=== PATIENT | female | born 1965 | race Caucasian/White ===

== ENCOUNTER → 2018-01-22 | Outpatient (CLI) | payer BC | LOC: FIMAGING 13:14 | PROVIDERS: ATTEND Orthopaedic Surgery | DX: M16.11 Unilateral primary osteoarthritis, right hip (principal); R19.00 Intra-abdominal and pelvic swelling, mass and lump, unspecified site ==

== ENCOUNTER → 2018-01-27 | Outpatient (CLI) | payer BC | LOC: BRMIMAGING 08:39 | PROVIDERS: ATTEND Physician Assistant | DX: R19.03 Right lower quadrant abdominal swelling, mass and lump (principal); N83.201 Unspecified ovarian cyst, right side; D25.9 Leiomyoma of uterus, unspecified | CPT/HCPCS: 76856-PO ==

== ENCOUNTER → 2018-01-30 | Outpatient (CLI) | payer BC ==
[~2018-01-30] MED LIST: GADOBUTROL 10 ML VIAL IVP ONE
== END ==
LOC: FIMAGING 12:39
PROVIDERS: ATTEND Nurse Practitioner Women's Health
DX: R19.00 Intra-abdominal and pelvic swelling, mass and lump, unspecified site (principal); D25.2 Subserosal leiomyoma of uterus
CPT/HCPCS: A9585

== ENCOUNTER 2018-02-06 07:59 | Inpatient (IN) | payer BC ==
--- NOTE | 2018-02-06 05:46 | PDHPUP ---
History & Physical Update H&P update statement: This history and physical update is based on an assessment of the patient which was completed after admission or registration (within 24 hours), but prior to the surgery/procedure. H&P update: H&P reviewed & patient examined, no change in patient's condition since H&P completed
--- NOTE | 2018-02-06 07:11 | PDGENHP ---
History and Physical History and Physical: Print Patient Name MAIRA COLBY (52yo, F) ID# [id number] Appt. Date/Time 01/26/2018 12: 00PM 1965 Service Dept. MAIN OFFICE Provider LIDYA ARTHUR PA-C Insurance Med Primary: [employer] Insurance # : [id number] Policy/Group # : [id number] Prescription: CMX - Member is eligible. details Chief Complaint Right CBB_discuss right hip surgery patient is here today to discuss right hip surgery. patient states right hip was popping 1-2 weeks ago while walking. No pain with it. Patient's Care Team Primary Care Provider: YADIRA ALANIZ DO: [address], [place] [address], , Patient's Pharmacies [facility] #[id number] (ERX): [phone] [facility], [facility] [id number], , Vitals Ht: 5 ft 10 in 01/26/2018 12:18 pm Wt: 147 lbs 01/26/2018 12:20 pm BMI: 21.1 01/26/2018 12:20 pm BP: 108/71 sitting R arm 01/26/2018 12:23 pm Pulse: 69 bpm 01/26/2018 12:23 pm Allergies Reviewed Allergies BENZOCAINE CELERY CODEINE LEVAQUIN PERCOCET SULFA (SULFONAMIDE ANTIBIOTICS) THIMEROSAL Medications Reviewed Medications cyclobenzaprine 10 mg tablet Take 1 tablet(s) every 8 hours as needed for muscle spasms 01/26/18 prescribed Lidya Arthur PA-C Dilaudid 2 mg tablet take 1 tab every 3-4 hours as needed for pain 01/26/18 prescribed Lidya Arthur PA-C EPINEPHrine 0.3 mg/0.3 mL injection, auto-injector PRN, stop 05/29/2016 09/02/16 filled [facility] escitalopram 10 mg tablet 01/16/18 filled [facility] tamoxifen 20 mg tablet 01/01/18 filled [facility] Vaccines None recorded. 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 Pain in left foot - Onset: 05/29/2016 Family History Reviewed Family History Mother - Arthritis - Heart disease - Malignant neoplastic disease Father - Heart disease Maternal Grandmother - Malignant neoplastic disease Maternal Aunt - Malignant neoplastic disease Maternal Uncle - Malignant neoplastic disease Social History Reviewed Social History Smoking Status: Never smoker Non-smoker Occupation: Artists and related workers Employer: self Occupational health risks: repetitive strain injury Chewing tobacco: none Alcohol intake: None Alcohol-years of use: 20 Caffeine intake: None Exercise level: Moderate Sporting activities: walking, stationary bike Hand Dominance: Bilateral Education: 4 Year College Live alone or with others?: with others Surgical History Reviewed Surgical History Shoulder arthroscopy - 11/06/2015 Oncology Surgery - 03/24/2015 Orthopaedic Surgery - 03/24/2015 Oncology Surgery - 03/24/2014 Orthopaedic Surgery - 03/24/2014 Atrial Septal Defect Repair - 03/24/2013 Orthopaedic Surgery - 03/24/2010 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 Past Pregnancies None recorded. Past Medical History Reviewed Past Medical History Anxiety Disorder: Y Arthritis: Y Cancer: Y Urinary Tract Infection: Y Are you still having monthly menstral periods: Y Metals or Jewelry Sensitivity: Y Screening None recorded. [facility] MASTER hip HPI Reported by patient. Location of symptoms: Right hip Symptoms: Pain Severity: moderate Duration: 1+ years Onset: chronic Exacerbated by: Walking; Physical activity Alleviated by: activity modifications; NSAIDs Associated Symptoms: no numbness Previous Surgery: none (on hip) Prior studies: radiographs Previous Injections: none Previous PT: did not help Work Related: no Notes: patient had many questions regarding surgery. All were addressed today. history of breast cancer ROS ROS as noted in the HPI Physical Exam Patient is a 52-year-old female. Constitutional: General Appearance: healthy-appearing, NAD, and normal body habitus. Psychiatric: Orientation: oriented to time, place, and person. Mood and Affect: normal affect and mood and active and alert. Gait and Station: Appearance: ambulating with no assistive devices and antalgic gait. Cardiovascular System: Arterial Pulses Right: dorsalis pedis pulse normal and posterior tibialis pulse normal. Edema Right: none. Varicosities Right: capillary refill test normal and no varicosities. Lymph Nodes: Inspection/Palpation Right: no popliteal LAD. Hip/Pelvis Appearance: Inspection: normal axial alignment, pelvis level, no leg length discrepancy, and Trendelenburg's sign negative. Hips: Bony Palpation Right: no tenderness of the SI joint or the greater trochanter. Soft Tissue Palpation Right: no tenderness of the hip flexor muscles , the hip adductor muscles, or the piriformis. Active Range of Motion Right: flexion (100 deg.), internal rotation (10 deg.), and external rotation (55 deg.) . Passive Range of Motion Right: pain elicited by motion. Strength Right: normal 5/5. Skin: Right Lower Extremity: normal. Neurologic: Sensation on the Right: L2 normal, L3 normal, and L4 normal. Heart Rate And Rhythm (normal) heart rate and rhythm. Lungs respirations unlabored. Assessment / Plan Right hip OA Previous hip xrays were reviewed today revealing severe DJD Discussed operative and non-operative interventions for diagnosis of hip arthritis with patient. Recommend Right CHRIST for treatment. Discussed risks and benefits of operative intervention including but not limited to bleeding, infection, need for further surgery, blood clots, blood clots going to the lungs and rare perioperative complications including stroke, heart attack and . We also discussed risk for dislocation, change in leg length, fracture and need for further surgery. Patient understands risks and wishes to proceed. Informed consent was obtained today Postoperative medications were written today including ASA for VTE prophylaxis postop Right CHRIST scheduled history of breast cancer. 2.9cm x2.5cm mass found on CT scan of right hip, recommend further visualization with ultrasound work up. Will send ultrasound order today. Recommend that patient discuss results with PCP. Patient understands and will do so at her next scheduled appt with PCP on of this week. patient has nausea with oxycodone. has tolerated dilaudid well in the past patient will keep us informed of what the ultrasound results are and what the recommendations of her PCP or oncologist/health care recruiter recommend. 1. Acute postoperative pain G89.18: Other acute postprocedural pain cyclobenzaprine 10 mg tablet - Take 1 tablet(s) every 8 hours as needed for muscle spasms Qty: 30 tablet(s) Refills: 1 [address]: [facility] # [id number] Dilaudid 2 mg tablet - take 1 tab every 3-4 hours as needed for pain Qty: 20 tablet(s) Refills: 0 Pharmacy: [facility] #[id number] 2. Prophylactic anticoagulation given Z76.89: Persons encountering health services in other specified circumstances 3. Localized, primary osteoarthritis M16.11: Unilateral primary osteoarthritis, right hip 4. Pelvic mass R19.00: Intra-abdominal and pelvic swelling, mass and lump, unspecified site US, PELVIS - Note to Imaging Facility: 2.9 cm x 2.5 cm mass visualized. questionable fibroud in uterus or left adnexa/ovarian mass on CT of right hip at [facility]. Radiologist recommends further visualization. PMH significant for breast cancer. Return to Office Eamon Arthur M.D. for Surgery 90 at Surgery on 02/06/2018 at 10:15 AM Lidya Arthur PA-C for Surgery 90 at Surgery on 02/06/2018 at 10:15 AM Lidya Arthur PA-C for Post Op Visit at MAIN OFFICE on 02/26/2018 at 10:15 AM Eamon Arthur M.D. for Post Op Visit at MAIN OFFICE on 03/19/2018 at 10 :30 AM Eamon Arthur M.D. for Post Op Visit at MAIN OFFICE on 04/30/2018 at 10 :30 AM Encounter Sign-Off Encounter signed-off by Lidya Arthur PA-C, 01/26/2018. Encounter performed and documented by Lidya Arthur PA-C Encounter reviewed & signed by Lidya Arthur PA-C on 01/26/2018 at 6:01pm There is not enough information to calculate an E&M code
[~2018-02-06 07:59] MED LIST changes: -GADOBUTROL 10 ML VIAL IVP ONE; +ROPIVACAINE 0.2% 80 MG, EPINEPHrine 0.2 MG, KETOROLAC TROMETHAMINE 30 MG in SYRINGE 0 ML IU ONE; +TRANEXAMIC ACID 3,000 MG in NS (SYRINGE) 50 ML IRR ONE; +TRANEXAMIC ACID 3,000 MG/50 ML BAG IRR ONE
[2018-02-06] MEDS ORDERED: ACETAMINOPHEN 325 MG TAB PO ONE (08:19)
[2018-02-06] MEDS ORDERED: FAMOTIDINE 20 MG TAB PO ONE (08:19)
[2018-02-06] MEDS ORDERED: ceFAZolin 2 GM/DEXTROSE 100 ML IV ONE (08:19)
[2018-02-06] MEDS ORDERED: DEXAMETHASONE 4 MG/ML VIAL IVP ONE (08:19)
[2018-02-06] MEDS ORDERED: MIDAZOLAM 2 MG/2 ML VIAL IVP ONE (08:48)
--- NOTE | 2018-02-06 08:48 | POSTANESTH ---
Post Anesthetic Evaluation Cardiovascular Status: Normal, Stable Respiratory Status: Normal, Stable Level of Consciousness/Mental Status: Can Participate in Eval, Mildly Sleepy, Arousable Pain Control: Adequate, Prn Tx Ordered Nausea/Vomiting Control: Adequate, Prn Tx Ordered Complications Possibly Related to Anesthesia: None Noted (LE still immobile secondary to SAB)
--- NOTE | 2018-02-06 08:51 | PDANEPAE ---
ANE History of Present Illness 52 yo female with R hip OA for R CHRIST. ANE Past Medical History - Cardiovascular History Hx Hypertension: No Hx Arrhythmias: No Hx Chest Pain: No Hx Coronary Artery / Peripheral Vascular Disease: No Hx CHF / Valvular Disease: No Hx Palpitations: No Cardiovascular History Comment: hypercholesterolemia - Pulmonary History Hx COPD: No Hx Asthma/Reactive Airway Disease: No Hx Recent Upper Respiratory Infection: No Hx Oxygen in Use at Home: No Hx Sleep Apnea: No Sleep Apnea Screening Result - Last Documented: Negative Pulmonary History Comment: INHALER FOR bronchospasm W/ALLERGIES - Neurologic History Hx Cerebrovascular Accident: No Hx Seizures: No Hx Dementia: No Neurologic History Comment: SINUS H/As - Endocrine History Hx Diabetes: No Hypothyroid: No Hyperthyroid: No Obesity: no - Renal History Hx Renal Disorders: No - Liver History Hx Hepatic Disorders: No - Neurological & Psychiatric Hx Hx Neurological and Psychiatric Disorders: Yes Neurological / Psychiatric History Comment: ANXIETY - Cancer History Hx Cancer: Yes Cancer History Comment: BREAST CANCER - Congenital Disorder History Hx Congenital Disorders: No - GI History Hx Gastrointestinal Disorders: Yes Gastrointestinal History Comment: IBS - Other Health History Other Health History: NEG. ECZEMA W/ALLERGIES - Chronic Pain History Chronic Pain: Yes (HIPS BRIANA,BACK, NECK) - Surgical History Prior Surgeries: SEPTAL REPAIR. FOOT SURG R. SHOULDER X2 R. BREAST MASTECTOMY & RECONSTRUCTION BRIANA ANE Review of Systems Review of Systems: - Exercise capacity METS (RN): 5 METS - Systems Constitutional: Reports: no symptoms Cardiac: Reports: no symptoms Respiratory: Reports: no symptoms Muscolosketal: Reports: joint pain ANE Patient History - Allergies Allergies/Adverse Reactions: codeine [Codeine] Allergy (Intermediate, Verified 03/02/15 10:47) Rash Sulfa (Sulfonamide Antibiotics) Allergy (Intermediate, Verified 03/02/15 10:47) Rash adhesive tape Allergy (Verified 01/08/18 11:56) Rash gold sodium thiomalate Allergy (Verified 01/08/18 11:56) PER PATCH TEST levofloxacin [From Levaquin] Allergy (Verified 01/08/18 11:56) TENDONITIS nickel Allergy (Verified 01/08/18 11:56) PER PATCH TEST oxycodone [From Percocet] Allergy (Verified 01/08/18 11:56) KEEPS AWAKE - "WIRES ME" thimerosal Allergy (Verified 01/08/18 11:56) TASTES IT BENZACAINE Allergy (Unknown, Uncoded 03/02/15 10:47) 4-TERT BUTYLPHENOLSOMALDEHY RESIN Allergy (Uncoded 01/08/18 11:56) POTASSIUM DICRONATE Allergy (Uncoded 01/08/18 11:56) PER PATCH TEST ZIRCONIUM Allergy (Uncoded 01/08/18 11:56) PER PATCH TEST - Home Medications Home Medications: Albuterol [Proventil Inhaler HFA (*)] 2 puffs IH Q6HRS PRN 01/06/18 [Last Taken Unknown] Betamethasone Jayla 0.12% Foam 1 jovan TP BID PRN 01/06/18 [Last Taken Unknown] Cetirizine [ZyrTEC 10 mg (*)] 10 mg PO DAILY PRN 01/06/18 [Last Taken Unknown] Chlordiaz/Clidiniu 5/2.5 [Librax (*)] 1 cap PO DAILY PRN 01/06/18 [Last Taken Unknown] Diazepam [Valium 5 MG (*)] 1.25 - 5 mg PO Q6HRS PRN 01/06/18 [Last Taken Unknown ] EPINEPHrine [Epipen 0.3 MG] 0.3 mg IM ONCE 01/06/18 [Last Taken Unknown] Escitalopram Oxalate [Lexapro] 10 mg PO BID 01/06/18 [Last Taken Unknown] Herbals/Supplements -Info Only 1 ea PO DAILY 01/06/18 [Last Taken Unknown] Ibuprofen/Famotidine [Duexis 800-26.6 mg Tablet] 1 each PO BID PRN 01/06/18 [ Last Taken Unknown] Tamoxifen Citrate 20 mg PO DAILY 01/06/18 [Last Taken 02/05/18 20] diphenhydrAMINE [Benadryl 12.5MG/5ML Oral Liquid (*)] 100 mg PO DAILY PRN [Last Taken Unknown] guaiFENesin [Mucinex 600 MG (*)] 600 mg PO DAILY PRN 01/06/18 [Last Taken Unknown] predniSONE 20 mg PO DAILY PRN 01/06/18 [Last Taken Unknown] Lexapro 10 MG 10 mg 02/06/18 [Last Taken 02/05/18 10mg] - NPO status NPO Since - Liquids (Date): 02/06/18 NPO Since - Liquids (Time): 07:00 NPO Since - Solids (Date): 02/05/18 NPO Since - Solids (Time): 21:00 - Anes Hx Anes Hx: no prior problems - Smoking Hx Smoking Status: Never smoked - Alcohol Use Alcohol Use: None (uses CBD oil) - Family Anes Hx Family Hx Anesthesia Complications: BROTHER ANAPHYLACTIC W/ANESTHESIA ANE Labs/Vital Signs - Vital Signs Blood Pressure: 120/70 Heart Rate: 63 Respiratory Rate: 16 O2 Sat (%): 97 Height: 177.8 cm Weight: 65.771 kg ANE Physical Exam - Airway Neck exam: FROM Mallampati Score: Class 1 Mouth exam: normal dental/mouth exam - Pulmonary Pulmonary: clear to auscultation - Cardiovascular Cardiovascular: regular rate and rhythym - ASA Status ASA Status: II ANE Anesthesia Plan Anesthesia Plan: spinal
[2018-02-06] MEDS ORDERED: LIDOCAINE 2% 2 ML INJ ONE (10:16)
[2018-02-06] MEDS ORDERED: BUPIVACAINE/DEXTROSE 7.5MG/ML 2 ML SPINAL AMP SP ONE (10:16)
[2018-02-06] MEDS ORDERED: PROPOFOL/EMULSION 500 MG/50 ML BOTTLE IV ONE (10:17)
[2018-02-06] MEDS ORDERED: fentaNYL 100 MCG/2 ML INJ ONE (10:17)
[2018-02-06] MEDS ORDERED: ACETAMINOPHEN 500 MG TAB PO PRN (11:31)
[2018-02-06] MEDS ORDERED: ALBUTEROL 3 ML DEYVIAL IH PRN (11:31)
[2018-02-06] MEDS ORDERED: LR 500 ML IV PRN (11:31)
[2018-02-06] MEDS ORDERED: ONDANSETRON 4 MG/2 ML VIAL IVP PRN ×2 (11:31→11:50)
[2018-02-06] MEDS ORDERED: fentaNYL 100 MCG/2 ML INJ IVP PRN (11:31)
[2018-02-06] MEDS ORDERED: NALOXONE HCL 0.4 MG/ML INJ IVP PRN (11:31)
[2018-02-06] MEDS ORDERED: TEMAZEPAM 15 MG CAP PO PRN (11:50)
[2018-02-06] MEDS ORDERED: HYDROmorphONE/DILAUDID 2 MG TAB PO PRN (11:50)
[2018-02-06] MEDS ORDERED: MAGNESIUM HYDROXIDE 30 ML UDCUP PO PRN (11:50)
[2018-02-06] MEDS ORDERED: diphenhydrAMINE 25 MG CAP PO PRN (11:50)
[2018-02-06] MEDS ORDERED: POLYETHYLENE GLYCOL 3350 17 GM PKT PO PRN (11:50)
[2018-02-06] MEDS ORDERED: BISACODYL 10 MG SUPP PR PRN (11:50)
[2018-02-06] MEDS ORDERED: METOCLOPRAMIDE 10 MG/2 ML VIAL IVP PRN (11:50)
[2018-02-06] MEDS ORDERED: PROMETHAZINE HCL 25 MG SUPPR PR PRN (11:50)
[2018-02-06] MEDS ORDERED: PROMETHAZINE HCL 25 MG/ML INJ IVP PRN (11:50)
[2018-02-06] MEDS ORDERED: ONDANSETRON DISINTEGRATING 4 MG TAB PO PRN (11:50)
[2018-02-06] MEDS ORDERED: CYCLOBENZAPRINE 10 MG TAB PO PRN (11:50)
[2018-02-06] MEDS ORDERED: LACTULOSE 20 GM/30 ML UDCUP PO PRN (11:50)
[2018-02-06] MEDS ORDERED: DIPHENOXYLATE/ATROPINE LOMOTIL 1 TAB PO PRN (11:50)
--- NOTE | 2018-02-06 11:50 | POSTOPPROG ---
Post Op Note Date of Operation: 02/06/18 Surgeon: Ana Tee Lot Porter: sloane tee PA-C Anesthesiologist: dr. navarro Anesthesia: Spinal Pre-op Diagnosis: right hip OA Post-op Diagnosis: same Indication: right hip pain Procedure: R CHRIST ant approach and robot assisted Findings: severe hip OA Inf/Abcess present in the surg proc area at time of surgery?: No EBL: 100-500
[2018-02-06] MEDS ORDERED: CHLORDIAZ/CLIDINIU 5 MG/2.5 MG 1 CAP PO PRN (11:52)
[2018-02-06] MEDS ORDERED: BETAMETHASONE VALERATE TP PRN (11:52)
[2018-02-06] MEDS ORDERED: LR 1,000 ML IV SCH (12:00)
[2018-02-06] MEDS ORDERED: ONDANSETRON 4 MG/2 ML VIAL ONE (12:34)
[2018-02-06] MEDS ORDERED: PROMETHAZINE HCL 25 MG/ML INJ ONE (12:46)
[2018-02-06] MEDS ORDERED: HYDROmorphONE/DILAUDID 2 MG TAB ONE (12:56)
[2018-02-06] MEDS: HYDROmorphONE/DILAUDID 2 MG TAB PO PRN ×3 (12:59→21:50)
[2018-02-06] MEDS ORDERED: ALBUTEROL 60 PUFFS/8 GM MDI IH PRN (14:30)
--- NOTE | 2018-02-06 14:58 | PDMN ---
Medical Necessity Medical necessity: Pt meets inpt criteria per MD order and [facility], [place] Arthroplasty, Medicare inpt only list. 52 y/o w/hx R hip OA admitted s/p R CHRIST, ant approach and robot assisted.
[2018-02-06] MEDS: DIAZEPAM 5 MG TAB PO PRN ×2 (15:44→23:01)
[2018-02-06] MEDS: ACETAMINOPHEN 325 MG TAB PO SCH ×3 (15:46→23:01)
[2018-02-06] MEDS: ceFAZolin 2 GM/DEXTROSE 100 ML IV SCH (16:51)
[2018-02-06] MEDS: SENNOSIDES/DOCUSATE SODIUM TAB PO SCH (20:40)
[2018-02-06] MEDS: ESCITALOPRAM OXALATE 10 MG TAB PO SCH (20:40)
[2018-02-06] MEDS: FAMOTIDINE 20 MG TAB PO SCH (20:41)
[2018-02-06] MEDS: ASPIRIN 81 MG CHEWABLE TAB PO SCH (20:41)
[2018-02-06] MEDS ORDERED: ESCITALOPRAM OXALATE 10 MG TAB PO SCH (21:00)
[2018-02-07] MEDS: ceFAZolin 2 GM/DEXTROSE 100 ML IV SCH (01:56)
[2018-02-07] MEDS: DIAZEPAM 5 MG TAB PO PRN ×2 (05:12→12:12)
[2018-02-07] MEDS: ACETAMINOPHEN 325 MG TAB PO SCH ×2 (05:13→12:12)
[2018-02-07] MEDS: HYDROmorphONE/DILAUDID 2 MG TAB PO PRN ×3 (05:16→14:25)
[2018-02-07] MEDS: FAMOTIDINE 20 MG TAB PO SCH (08:56)
[2018-02-07] MEDS: ESCITALOPRAM OXALATE 10 MG TAB PO SCH (08:56)
[2018-02-07] MEDS: SENNOSIDES/DOCUSATE SODIUM TAB PO SCH (08:57)
[2018-02-07] MEDS: ASPIRIN 81 MG CHEWABLE TAB PO SCH (08:57)
[2018-02-07] MEDS ORDERED: TAMOXIFEN CITRATE 10 MG TAB PO SCH (09:00)
--- NOTE | 2018-02-07 11:11 | ASMTLACE ---
GOYOE Length of stay for Answers: 2 days current admission Acuity / Level of Answers: Yes Care: Did the patient have an inpatient admission? Comorbidities - select Answers: Opioid dependence all that apply / Chronic pain Other Notes: Hx of breast cancer # of Emergency department Answers: 0 visits in the last 6 months Social determinants Answers: Mental health diagnosis (anxiety, depression, pers onality disorders, etc.) Score: 13 Date Signed: 02/07/2018 11:10 AM Electronically Signed By:SHARIF Bowman
--- NOTE | 2018-02-07 11:11 | SOAPPROG ---
SOAP Progress Note Assessment/Plan: Assessment: Patient is doing well POD 1 s/p R CHRIST Pain management: pain is well controlled on oral pain meds. VTE ppx: recommend aspirin 81 mg BID for 3 weeks, cont BETH and SCDs Anemia: level is expected initially postop. Asymptomatic. Continue to monitor D/c planning: d/c to home today pending release from PT Plan: 02/07/18 11:10 Subjective: patient is doing well, denies SOB, chest pain and N/V Objective: Vital Signs Temp Pulse Resp BP Pulse Ox 37.3 C 78 14 98/58 L 97 02/07/18 07:40 02/07/18 10:13 02/07/18 10:13 02/07/18 07:40 02/07/18 10:13 Laboratory Results 02/07/18 04:43 02/06/18 02/07/18 02/08/18 05:59 05:59 05:59 Intake Total 1545 Output Total 1999 200 Balance -455 -200 RLE: incision dressing is clean and dry, NVI, +pf/df ICD10 Worksheet Patient Problems: Problems Problem Status Onset Primary localized osteoarthritis of right hip Acute
--- NOTE | 2018-02-07 11:44 | GDS ---
ADMISSION DIAGNOSIS: Right hip osteoarthritis. DISCHARGE DIAGNOSIS: Right hip osteoarthritis. PROCEDURE: Right total hip arthroplasty, robotic-assisted. VTE PROPHYLAXIS: Recommend aspirin 81 mg twice daily for 4 weeks. BRIEF DESCRIPTION OF HOSPITAL STAY: Patient was admitted for an elective joint arthroplasty. The pa lani tolerated the procedure well and has passed physical therapy. The patient was given appropriat e antibiotic prophylaxis and venous thromboembolism prophylaxis. The patient's pain was well control led on oral pain medication, patient was holding down food, and had urinated. Decision was made to d ischarge the patient. The patient was given post-operative prescriptions pre-operatively. PLAN: Follow up as scheduled in Dr. Muniz's office on 02/26 at 10:15. /[id number]/MODL
[2018-02-07 11:52] VITALS: BP 96/48
--- NOTE | 2018-02-08 09:24 | GOP ---
DATE OF OPERATION: 02/06/2018 SURGEON: Kobi Muniz MD FURNACE FITTER: Lidya Muniz, CECILIA PREOPERATIVE DIAGNOSIS: Right hip osteoarthritis. POSTOPERATIVE DIAGNOSIS: Right hip osteoarthritis. PROCEDURE PERFORMED: Right total hip arthroplasty with computer navigation, robotic-assist. FINDINGS: ESTIMATED BLOOD LOSS: 200 cc. INDICATIONS: The patient has progressively worsening arthritis of the hip which has failed medical m anagement. The patient understands the treatment option including continued non-operative care and h as selected surgical intervention. The patient has decided to undergo total hip arthroplasty via the direct anterior approach understanding the risks of the procedure including, but not limited to, dale rovascular injury, infection, persistent pain, component wear and loosening, deep venous thrombosis, pulmonary embolism, limb length inequality (including dislocation), and intraoperative fractures. DESCRIPTION OF PROCEDURE: After proper identification of the patient including verification and brenna ing the surgical site, the patient was brought to the operating room and placed in the supine positio n. All bony prominences were well padded. Anesthesia was induced without complication and intraveno us prophylactic antibiotics were administered prior to skin incision. After prepping and draping in the usual sterile fashion, attention was drawn to the contralateral pel vis for attachment of the computer navigation tracker. Three percutaneous incisions were made over t he iliac crest and the pelvic tracker was affixed using threaded 3.5 mm pins yielding excellent fixat ion. Using computer navigation the patient's leg length and topographical pelvic anatomy was registe red without complication. Attention was then drawn to surgical exposure of the hip. An incision was made with a #10 Bard Ramirez r blade starting 3 cm lateral and 3 cm distal to the anterior superior iliac spine measuring 8 cm to 10 cm and coursing distally toward the greater trochanter. The skin and subcutaneous tissues were di vided sharply down the fascia annemarie. The fascia annemarie was incised in line with the skin incision expos ing the underlying tensor fascia annemarie muscle. This muscle was bluntly elevated from the fascia and t he first extracapsular Cobra retractor was placed laterally at the junction of the superior femoral n matthew and greater trochanter. The lateral femoral circumflex vessels were identified, cauterized and d ivided with the Aquamantys bipolar cautery. The deep investing fascia of the TFL was divided to allo w proper mobilization of the muscle preventing damage during retraction. The reflected head of the r ectus femoris muscle was elevated off the anterior hip capsule and a medial Cobra retractor was place d just proximal to the lesser trochanter. The anterior capsulotomy was made sharply from the superolateral acetabulum to the saddle junction of the superior femoral neck and greater trochanter, then coursing inferomedial towards the lesser troc hanter. The retractors were then placed in the intracapsular position for femoral neck osteotomy. C orresponding to preoperative templating the osteotomy was made with the oscillating saw protecting th e greater trochanter and soft tissues. The femoral head was removed from the acetabulum with a corks crew and confirmed to be severely arthritic with exposed bone, deformity and osteophytes. Similar fi nding was confirmed in the acetabulum. The Arch table extension was then placed in 40 degrees external rotation. Attention was then drawn t o the acetabular preparation. After placement of the anterior and posterior Cobra retractors outside the labrum and intrascapular the circumferential labrum was removed sharply. The foveal contents we re then removed and hemostasis obtained with cautery. The anatomy of the acetabulum was then registe red using computer navigation. The first reamer selected was sized using the removed femoral head. Reaming began with robotic malinda t at 40 degrees of abduction and 20 degrees of anteversion using computer navigation. Reaming ceased 0 mm less than the definitive acetabular component. The final acetabular component was inserted usi ng the computer to achieve proper orientation yielding excellent purchase and stability in the acetab ulum. The final acetabular liner was then placed and its seating confirmed. Attention was then turned to the femur. The Arch table extension was placed in extension and adducti on delivering the osteotomized femoral neck into the wound. A 2-pronged femoral elevator was placed at the calcar and another at the tip of the greater trochanter. The posterolateral capsule was relea sed with cautery allowing mobilization of the femur lateral and anterior for preparation. The dog walker al rotators were visualized and preserved. A curette and rongeur were used to open the starting poin t for broaching. Serial broaching started with the #0 broach and ended with the broach that exhibited excellent fit in the proximal femur. A change in pitch during mallet strikes was accompanied by the inability to advance the broach any further. The trial reduction was performed and fluoroscopic sandi igation was utilized to check limb length. Adjustments were made to equalize limb length accordingly . After the final trials were accepted they were removed and the wound was copiously lavaged. The femo ral component was seated to the same depth as the final broach and the femoral head was impacted onto the clean trunnion. The hip was then reduced for the final time and once more fluoroscopic navigati on used to check that limb length equality was achieved. The wound was irrigated and closed in layers, the fascia annemarie with 2-0 Quill, the subcutaneous tissue with a 2-0 Quill, and the skin with Dermabond, including the small incisions for computer navigation . Sterile dressings were applied. Final sharps and sponge counts were accurate. The patient was th en transferred to a hospital bed and brought to the recovery room in stable condition. IMPLANTS: Accolade II size 4 at 127, acetabular component with Trident II 52 mm, liner is a Trident X3 36 mm, head is a Biolox Delta 36 mm +2.4. /[id number]/MODL
== END 2018-02-07 14:51 | disposition home or self-care (01) | DRG 470 ==
LOC: F3N 07:59
PROVIDERS: ADMIT Orthopaedic Surgery; ATTEND Orthopaedic Surgery
DX: M16.11 Unilateral primary osteoarthritis, right hip (principal); D62 Acute posthemorrhagic anemia; G89.18 Other acute postprocedural pain; R19.00 Intra-abdominal and pelvic swelling, mass and lump, unspecified site; E78.00 Pure hypercholesterolemia, unspecified; F41.9 Anxiety disorder, unspecified; Z87.440 Personal history of urinary (tract) infections; Z85.3 Personal history of malignant neoplasm of breast
CPT/HCPCS: 97110-GP; 97116-GP; 97161-GP; 97530-GP; J0171; J0690; J1100; J1885; J2250; J2405; J2550; J2704; J2795; J3010